=== PATIENT | female | born 1970 | race American Indian/Alaskan Native ===

== ENCOUNTER 2019-02-26 16:30 | Emergency (ER) | payer SELFPAY ==
--- NOTE | 2019-02-26 17:17 | Emergency Department Report ---
Blank Doc - Documentation Documentation: This is a 49-year-old female that presents with chest pain in the midsternum and stated radiates to epigastric area. This initial assessment/diagnostic orders/clinical plan/treatment(s) is/are subject to change based on patient's health status, clinical progression and re-assessment by fellow clinical providers in the ED. Further treatment and workup at subsequent clinical providers discretion. Patient/guardians urged not to elope from the ED as their condition may be serious if not clinically assessed and managed. Initial orders include: 1- Patient sent to [facility] for further evaluation and treatment 2- EKG 3- labs 4- cXR
[2019-02-26 17:57] LABS: Basophils % (Auto) 0.3 % (0.0-1.8); Eosinophils # (Auto) 0.1 K/mm3 (0.0-0.4); Eosinophils % (Auto) 2.2 % (0.0-4.3); Hematocrit 38.6 % (30.3-42.9); Hemoglobin 12.6 gm/dl (10.1-14.3); Lymphocytes # (Auto) 2.5 K/mm3 (1.2-5.4); Lymphocytes % (Auto) 39.3 % (13.4-35.0); Mean Corpuscular HGB Conc 33 % (30-34); Mean Corpuscular Volume 73 fl (79-97); Monocytes # (Auto) 0.4 K/mm3 (0.0-0.8); Monocytes % (Auto) 6.7 % (0.0-7.3); Platelet Count 215 K/mm3 (140-440); Red Blood Count 5.32 M/mm3 (3.65-5.03); Red Cell Distribution Width 17.7 % (13.2-15.2)
[2019-02-26 18:17] LABS: BUN/Creatinine Ratio 19; Blood Urea Nitrogen 15 mg/dL (7-17); Calcium 10.1 mg/dL (8.4-10.2); Hemolysis Index 7
[2019-02-26 18:19] LABS: INR 1.03 (0.87-1.13); Partial Thromboplastin Time 29.1 Sec. (24.2-36.6)
[2019-02-26 18:35] LABS: Bilirubin,Urine NEG (Negative); Blood,Urine NEG (Negative); Color,Urine Straw (Yellow); Mucus,Urine FEW /HPF; Protein,Urine <15 mg/dL mg/dL (Negative); Urobilinogen,Urine < 2.0 mg/dL (<2.0)
--- NOTE | 2019-02-26 20:02 | XRay Report ---
CHEST 2 VIEWS INDICATION / CLINICAL INFORMATION: Chest Pain. COMPARISON: None available. FINDINGS: SUPPORT DEVICES: None. HEART / MEDIASTINUM: No significant abnormality. LUNGS / PLEURA: No significant pulmonary or pleural abnormality. No pneumothorax. ADDITIONAL FINDINGS: No significant additional findings. IMPRESSION: 1. No acute findings. Signer Name: Carter Rubalcava MD Signed: 02/26/2019 7:58 PM Workstation Name: [id number]
[2019-02-26] MEDS ORDERED: ALUM-MAG HYDROX-SIMETH 200-200-20MG/5ML PO ONE (20:48)
[2019-02-26] MEDS ORDERED: LIDOCAINE VISCOUS 2% PO ONE (20:48)
[2019-02-26] MEDS ORDERED: BENTYL PO ONE (20:48)
--- NOTE | 2019-02-26 21:25 | Emergency Department Report ---
ED Chest Pain HPI - General Chief Complaint: Chest Pain Stated Complaint: CHEST PAIN Time Seen by Provider: 02/26/19 17:15 Source: patient Mode of arrival: Ambulatory Limitations: No Limitations - History of Present Illness Initial Comments: Patient is a 49-year-old female who presents to emergency room with complaints of substernal chest pain that felt like a soreness that began last week. She states the pain is worse with movements and twisting motions. She felt like she "pulled a muscle or had gas." She states she has been exercising more freq uently. She denies any nausea, vomiting, shortness of breath, lower extremity edema. she states last week she did sit in a car for 6 hours. She denies being on any hormones, recent surgery, recent immobilization. she denies any past medical history or allergies medications. denies any history of high blood pressure but states her pressure has been elevated on multiple occasions. - Related Data Previous Rx's Medication Instructions Recorded Last Taken Type Baclofen [Lioresal] 10 mg PO QHS PRN #10 tab 02/26/19 Unknown Rx Naproxen [EC-Naproxen] 375 mg PO BID PRN #20 tablet. 02/26/19 Unknown Rx Allergies Allergy/AdvReac Type Severity Reaction Status Date / Time No Known Allergies Allergy Unverified 02/26/19 16:35 Heart Score - HEART Score History: Slightly suspicious EKG: Non-specific Age: 45-65 Risk factors: 1-2 risk factors Troponin: < normal limit HEART Score: 3 ED Review of Systems ROS: Stated complaint: CHEST PAIN Other details as noted in HPI Comment: All other systems reviewed and negative ED Past Medical Hx - Past Medical History Previous Medical History?: No - Surgical History Past Surgical History?: No - Social History Smoking Status: Never Smoker Substance Use Type: None - Medications Home Medications: Home Medications Medication Instructions Recorded Confirmed Last Taken Type Baclofen [Lioresal] 10 mg PO QHS PRN #10 tab 02/26/19 Unknown Rx Naproxen [EC-Naproxen] 375 mg PO BID PRN #20 tablet. 02/26/19 Unknown Rx ED Physical Exam - General Limitations: No Limitations General appearance: alert, in no apparent distress - Head Head exam: Present: atraumatic, normocephalic - Eye Eye exam: Present: normal appearance, PERRL, EOMI - ENT ENT exam: Present: mucous membranes moist - Respiratory Respiratory exam: Present: normal lung sounds bilaterally, other (pain is reproduced with twisting motion). Absent: respiratory distress, wheezes, rales, rhonchi, stridor, accessory muscle use, decreased breath sounds, prolonged expiratory - Cardiovascular Cardiovascular Exam: Present: regular rate, normal rhythm, normal heart sounds. Absent: systolic murmur, diastolic murmur, rubs, gallop - Neurological Exam Neurological exam: Present: alert, oriented X3 - Psychiatric Psychiatric exam: Present: normal affect, normal mood - Skin Skin exam: Present: warm, dry, intact ED Course Vital Signs 02/26/19 02/26/19 17:16 22:26 Temperature 98.5 F 98.1 F Pulse Rate 109 H 98 H Respiratory 20 18 Rate Blood Pressure 174/112 Blood Pressure 178/96 [Left] O2 Sat by Pulse 99 99 Oximetry RAMY score - Ramy Score Age > 65: (0) No Aspirin use within the Past 7 Days: (0) No 3 or more CAD Risk Factors: (0) No 2 or more Angina events in past 24 hrs: (0) No Known CAD with more than 50% Stenosis: (0) No Elevated Cardiac Markers: (0) No ST Deviation Greater than 0.5mm: (0) No RAMY Score: 0 ED Medical Decision Making - Lab Data Result diagrams: 02/26/19 17:31 02/26/19 17:31 Lab Results 02/26/19 02/26/19 02/26/19 Range/Units 17:31 17:31 17:31 WBC 6.3 (4.5-11.0) K/mm3 RBC 5.32 H (3.65-5.03) M/mm3 Hgb 12.6 (10.1-14.3) gm/dl Hct 38.6 (30.3-42.9) % MCV 73 L (79-97) fl MCH 24 L (28-32) pg MCHC 33 (30-34) % RDW 17.7 H (13.2-15.2) % Plt Count 215 (140-440) K/mm3 Lymph % (Auto) 39.3 H (13.4-35.0) % [place] % (Auto) 6.7 (0.0-7.3) % Eos % (Auto) 2.2 (0.0-4.3) % Baso % (Auto) 0.3 (0.0-1.8) % Lymph # 2.5 (1.2-5.4) K/mm3 [place] # 0.4 (0.0-0.8) K/mm3 Eos # 0.1 (0.0-0.4) K/mm3 Baso # 0.0 (0.0-0.1) K/mm3 Seg Neutrophils % 51.5 (40.0-70.0) % Seg Neutrophils # 3.3 (1.8-7.7) K/mm3 PT 13.2 (12.2-14.9) Sec. INR 1.03 (0.87-1.13) APTT 29.1 (24.2-36.6) Sec. D-Dimer (0-234) ng/mlDDU Sodium 138 (137-145) mmol/L Potassium 4.2 (3.6-5.0) mmol/L Chloride 101.4 (98-107) mmol/L Carbon Dioxide 25 (22-30) mmol/L Anion Gap 16 mmol/L BUN 15 (7-17) mg/dL Creatinine 0.8 (0.7-1.2) mg/dL Estimated GFR > 60 ml/min BUN/Creatinine Ratio 19 % Glucose 93 (65-100) mg/dL Calcium 10.1 (8.4-10.2) mg/dL Troponin T < 0.010 (0.00-0.029) ng/mL HCG, Qual (Negative) Urine Color (Yellow) Urine Turbidity (Clear) Urine pH (5.0-7.0) Ur Specific [place] (1.003-1.030) Urine Protein (Negative) mg/dL Urine Glucose (UA) (Negative) mg/dL Urine Ketones (Negative) mg/dL Urine Blood (Negative) Urine Nitrite (Negative) Urine Bilirubin (Negative) Urine Urobilinogen (<2.0) mg/dL Ur Leukocyte Esterase (Negative) Urine WBC (Auto) (0.0-6.0) /HPF Urine RBC (Auto) (0.0-6.0) /HPF U Epithel Cells (Auto) (0-13.0) /HPF Urine Mucus /HPF 02/26/19 02/26/19 02/26/19 Range/Units 17:31 18:16 20:15 WBC (4.5-11.0) K/mm3 RBC (3.65-5.03) M/mm3 Hgb (10.1-14.3) gm/dl Hct (30.3-42.9) % MCV (79-97) fl MCH (28-32) pg MCHC (30-34) % RDW (13.2-15.2) % Plt Count (140-440) K/mm3 Lymph % (Auto) (13.4-35.0) % [place] % (Auto) (0.0-7.3) % Eos % (Auto) (0.0-4.3) % Baso % (Auto) (0.0-1.8) % Lymph # (1.2-5.4) K/mm3 [place] # (0.0-0.8) K/mm3 Eos # (0.0-0.4) K/mm3 Baso # (0.0-0.1) K/mm3 Seg Neutrophils % (40.0-70.0) % Seg Neutrophils # (1.8-7.7) K/mm3 PT (12.2-14.9) Sec. INR (0.87-1.13) APTT (24.2-36.6) Sec. D-Dimer (0-234) ng/mlDDU Sodium (137-145) mmol/L Potassium (3.6-5.0) mmol/L Chloride (98-107) mmol/L Carbon Dioxide (22-30) mmol/L Anion Gap mmol/L BUN (7-17) mg/dL Creatinine (0.7-1.2) mg/dL Estimated GFR ml/min BUN/Creatinine Ratio % Glucose (65-100) mg/dL Calcium (8.4-10.2) mg/dL Troponin T < 0.010 (0.00-0.029) ng/mL HCG, Qual Negative (Negative) Urine Color Straw (Yellow) Urine Turbidity Clear (Clear) Urine pH 5.0 (5.0-7.0) Ur Specific [place] 1.013 (1.003-1.030) Urine Protein <15 mg/dl (Negative) mg/dL Urine Glucose (UA) Neg (Negative) mg/dL Urine Ketones Tr (Negative) mg/dL Urine Blood Neg (Negative) Urine Nitrite Neg (Negative) Urine Bilirubin Neg (Negative) Urine Urobilinogen < 2.0 (<2.0) mg/dL Ur Leukocyte Esterase Lg (Negative) Urine WBC (Auto) 14.0 H (0.0-6.0) /HPF Urine RBC (Auto) 10.0 (0.0-6.0) /HPF U Epithel Cells (Auto) 1.0 (0-13.0) /HPF Urine Mucus Few /HPF 02/26/19 Range/Units 20:15 WBC (4.5-11.0) K/mm3 RBC (3.65-5.03) M/mm3 Hgb (10.1-14.3) gm/dl Hct (30.3-42.9) % MCV (79-97) fl MCH (28-32) pg MCHC (30-34) % RDW (13.2-15.2) % Plt Count (140-440) K/mm3 Lymph % (Auto) (13.4-35.0) % [place] % (Auto) (0.0-7.3) % Eos % (Auto) (0.0-4.3) % Baso % (Auto) (0.0-1.8) % Lymph # (1.2-5.4) K/mm3 [place] # (0.0-0.8) K/mm3 Eos # (0.0-0.4) K/mm3 Baso # (0.0-0.1) K/mm3 Seg Neutrophils % (40.0-70.0) % Seg Neutrophils # (1.8-7.7) K/mm3 PT (12.2-14.9) Sec. INR (0.87-1.13) APTT (24.2-36.6) Sec. D-Dimer 176.32 (0-234) ng/mlDDU Sodium (137-145) mmol/L Potassium (3.6-5.0) mmol/L Chloride (98-107) mmol/L Carbon Dioxide (22-30) mmol/L Anion Gap mmol/L BUN (7-17) mg/dL Creatinine (0.7-1.2) mg/dL Estimated GFR ml/min BUN/Creatinine Ratio % Glucose (65-100) mg/dL Calcium (8.4-10.2) mg/dL Troponin T (0.00-0.029) ng/mL HCG, Qual (Negative) Urine Color (Yellow) Urine Turbidity (Clear) Urine pH (5.0-7.0) Ur Specific [place] (1.003-1.030) Urine Protein (Negative) mg/dL Urine Glucose (UA) (Negative) mg/dL Urine Ketones (Negative) mg/dL Urine Blood (Negative) Urine Nitrite (Negative) Urine Bilirubin (Negative) Urine Urobilinogen (<2.0) mg/dL Ur Leukocyte Esterase (Negative) Urine WBC (Auto) (0.0-6.0) /HPF Urine RBC (Auto) (0.0-6.0) /HPF U Epithel Cells (Auto) (0-13.0) /HPF Urine Mucus /HPF Vital Signs 02/26/19 02/26/19 17:16 22:26 Temperature 98.5 F 98.1 F Pulse Rate 109 H 98 H Respiratory 20 18 Rate Blood Pressure 174/112 Blood Pressure 178/96 [Left] O2 Sat by Pulse 99 99 Oximetry - EKG Data EKG shows normal: sinus rhythm, axis, intervals, QRS complexes Rate: normal - EKG Data 02/26/19 21:25 T wave inversion in V1, V2 - Radiology Data Radiology results: report reviewed CHEST 2 VIEWS INDICATION / CLINICAL INFORMATION: Chest Pain. COMPARISON: None available. FINDINGS: SUPPORT DEVICES: None. HEART / MEDIASTINUM: No significant abnormality. LUNGS / PLEURA: No significant pulmonary or pleural abnormality. No pneumothorax. ADDITIONAL FINDINGS: No significant additional findings. IMPRESSION: 1. No acute findings. Signer Name: Carter Rubalcava MD Signed: 02/26/2019 7:58 PM Workstation Name: [id number] Transcribed By: Dictated By: Carter Rubalcava MD Electronically Authenticated By: Carter Rubalcava MD Signed Date/Time: 02/26/191957 - Medical Decision Making Patient is a 49-year-old female who presents to emergency room with complaints of substernal chest pain that felt like a soreness that began last week. She states the pain is worse with movements and twisting motions. She felt like she "pulled a muscle or had gas." She states she has been exercising more frequently. She denies any nausea, vomiting, shortness of breath, lower extre mity edema. she states last week she did sit in a car for 6 hours. She denies being on any hormones, recent surgery, recent immobilization. she denies any past medical history or allergies medications. denies any history of high blood pressure but states her pressure has been elevated on multiple occasions. initial vitals with HR of 108 and BP of 174/112, pt given 100 mg of labetalol and improved to HR of 98 and BP of 178/96. labs WNL. d-dimer is negative. trop negative x 2. CXR with no acute process. EKG with T wave inversion in V1, V2 otherwise normal. pt given a GI cocktail while in the ED. due to pain being with ROM and feeling like a soreness pt given prescription for anti-inflammatory and muscle relaxer. advised to please take medication as prescribed as needed. Do not drive or operate heavy machinery while taking muscle relaxer due to potential for drowsiness. may use ice, rest, heating pad. Follow-up with a primary care doctor and a pc maintenance technician in the next 2-3 days. Return to the emergency room for any new or worsening symptoms. please discuss with the primary care doctor the elevation in your blood pressure. please keep a blood pressure log and eat a low sodium diet. - Differential Diagnosis ACS, PE, PTX, GERD, PUD, Gastritis, Costrocondritis, muscle strain Critical care attestation.: If time is entered above; I have spent that time in minutes in the direct care of this critically ill patient, excluding procedure time. ED Disposition Clinical Impression: Chest pain Qualifiers: Chest pain type: unspecified Qualified Code(s): R07.9 - Chest pain, unspecified Disposition: DC- TO HOME OR SELFCARE Is pt being admited?: No Does the pt Need Aspirin: No Condition: Stable Instructions: Chest Pain (ED), Costochondritis (ED) Additional Instructions: Please take medication as prescribed as needed. Do not drive or operate heavy machinery while taking muscle relaxer due to potential for drowsiness. may use ice, rest, heating pad. Follow-up with a primary care doctor and a pc maintenance technician in the next 2-3 days. Return to the emergency room for any new or worsening symptoms. please discuss with the primary care doctor the elevation in your blood pressure. please keep a blood pressure log and eat a low sodium diet. Prescriptions: Baclofen [Lioresal] 10 mg PO QHS PRN #10 tab PRN Reason: Muscle Spasm Naproxen [EC-Naproxen] 375 mg PO BID PRN #20 tablet. PRN Reason: pain [facility] THANH [Primary Care Provider] - 2-3 Days SAIRA KULKARNI MD [Staff Physician] - 2-3 Days Time of Disposition: 21:26 Print Language: THAI
[2019-02-26] MEDS ORDERED: NORMODYNE PO ONE (21:44)
[2019-02-26 22:28] VITALS: BP 178/96
== END 2019-02-26 22:26 | disposition home or self-care (01) ==
LOC: ED 16:30
DX: R07.89 Other chest pain (principal)
CPT/HCPCS: 36415; 71046; 80048; 81001; 84484; 84703; 85025; 85379; 85610; 85730; 87086; 93005; 93010